=== PATIENT | female | born 1950 | race Caucasian/White ===

== ENCOUNTER 2018-09-05 14:38 | Emergency (ER) | payer MEDICARE, OTHER ==
--- NOTE | 2018-09-05 20:09 | RAD ---
BILATERAL RIBS WITH PA CHEST: 09/05/18 Multiple views of both left and right ribs were obtained. No definite fracture was seen. There was a little equivocal irregularity at the distal ends of the right 7th and 8th ribs, but it was not enough to make a definitive diagnosis of fracture. These should be correlated with the site of pain. PA chest film shows a normal sized heart and mediastinum. Trachea is midline. The lungs are fully inf lated and clear. There are no effusions. IMPRESSION: No definite traumatic findings. Very minor irregularity of the distal ends of the right 7th and 8th ribs which may or may not be significant. POS: HOME
== END 2018-09-05 15:49 | disposition home or self-care (01) ==
LOC: BURERS 14:38
DX: S20.212A Contusion of left front wall of thorax, initial encounter (principal); E11.9 Type 2 diabetes mellitus without complications; E78.2 Mixed hyperlipidemia; Z79.899 Other long term (current) drug therapy; V43.52XA Car driver injured in collision with other type car in traffic accident, initial encounter
CPT/HCPCS: 71111

== ENCOUNTER 2021-03-23 12:01 | Outpatient (CLI) | payer MEDICARE | END 2021-03-23 12:02 | disposition home or self-care (01) | LOC: BURRAD 12:01 | PROVIDERS: ATTEND Family Medicine | DX: S99.911A Unspecified injury of right ankle, initial encounter (principal); S82.51XA Displaced fracture of medial malleolus of right tibia, initial encounter for closed fracture ==